=== PATIENT | female | born 1965 | race American Indian/Alaskan Native ===

== ENCOUNTER 2016-10-04 18:22 | Emergency (ER) | payer BC ==
[2016-10-04 21:10] LABS: Hemoglobin 13.1 gm/dl (10.1-14.3); Mean Corpuscular HGB Conc 34 % (30-34); Mean Corpuscular Hemoglobin 34 pg (28-32); Mean Corpuscular Volume 102 fl (79-97); Red Blood Count 3.83 M/mm3 (3.65-5.03); Red Cell Distribution Width 12.9 % (13.2-15.2); White Blood Count 7.7 K/mm3 (4.5-11.0)
[2016-10-04 21:11] LABS: Platelet Count 190 K/mm3 (140-440)
[2016-10-04 21:12] LABS: Basophils % (Auto) 0.1 % (0.0-1.8); Eosinophils % (Auto) 0.1 % (0.0-4.3)
[2016-10-04 21:21] LABS: Anion Gap 19 mmol/L; Blood Urea Nitrogen 10 mg/dL (7-17); Calcium 9.3 mg/dL (8.4-10.2); Carbon Dioxide 22 mmol/L (22-30); Chloride 100.9 mmol/L (98-107); Creatine Kinase 159 units/L (30-135); Glucose 106 mg/dL (65-100); Sodium 138 mmol/L (137-145)
--- NOTE | 2016-10-04 21:31 | Cat Scan Report ---
FINAL REPORT EXAM: CT ABDOMEN PELVIS WO CON HISTORY: R flank pain TECHNIQUE: Serial axial images through the abdomen and pelvis with coronal and sagittal reconstruction. PRIORS: None. FINDINGS: No focal consolidations are seen in the lung bases. No pleural effusion is seen. The liver, gallbladder, pancreas, spleen and adrenal glands appear within normal limits. Kidneys appear normal. No renal calculi are identified. No stones are seen along the course of the ureters. No gross abnormality is seen in bladder. No free fluid. Appendix appears normal. No gross bowel abnormality is identified. Stomach appears patulous. No acute osseous abnormality is identified. IMPRESSION: 1. No renal calculi are identified. No stones are seen along the course of the ureters. There is not evidence of hydronephrosis or other obstructive uropathy. Possibility of pyelonephritis is not excluded. Correlation with laboratory values is necessary. 2. Normal-appearing appendix. 3. No free fluid or inflammatory changes are seen in the abdomen or pelvis. 4. Stomach appears patulous, but nondistended.
[2016-10-04 21:56] LABS: Bacteria,Urine 1+ /HPF (Negative); Bilirubin,Urine NEG (Negative); Blood,Urine NEG (Negative); Ketones,Urine 80 mg/dL (Negative); Leukocyte Esterase,Urine LG (Negative); Mucus,Urine 2+ /HPF; Nitrite,Urine NEG (Negative); Urobilinogen,Urine < 2.0 mg/dL (<2.0)
--- NOTE | 2016-10-04 22:07 | Emergency Department Report ---
ED Female HPI - General Chief complaint: Abdominal Pain Stated complaint: LEFT SIDE PAIN Time Seen by Provider: 10/04/16 21:28 Source: patient Mode of arrival: Ambulatory Limitations: No Limitations - History of Present Illness Initial comments: This is a 51-year-old female well-nourished with nontoxic or ill in appearance the patient is afebrile complaining of left-sided flank pain, dysuria, polyuria 1 day. Patient stated she had dysuria and polyuria for the past week and started to develop left flank pain that brought her to the ED. Patient denies any chest pain, shortness of breath, fever, chills, headache, shortness of breath, nausea, vomiting, abdominal pain, pelvic pain. Patient visited pain of the left flank region she has vomited times one today. Patient describes pain as aching/sharp with current level of 2/10. Patient denies any allergies. Denies sick contact. Denies Past medical history. MD Complaint: dysuria, other (left flank pain) -: Gradual, days(s) (1) Radiation: non-radiating Severity: mild Severity scale (0 -10): 2 Quality: stabbing, aching Consistency: constant Improves with: none Worsens with: none Are you Now?: No (menopause) Associated Symptoms: dysuria. denies: vaginal discharge, vaginal bleeding, abdominal pain, nausea/vomiting, fever/chills, headaches, loss of appetite, hematuria, rash, seizure, shortness of breath, syncope, weakness - Related Data Sexually active: No Previous Rx's Medication Instructions Recorded Last Taken Type Starch 51%(Nf) [Anusol] 1 each ME BID #10 supp.rect 03/16/14 Unknown Rx Ciprofloxacin HCl [Ciprofloxacin 500 mg PO Q12HR 7 Days 10/04/16 Unknown Rx TAB] Allergies Allergy/AdvReac Type Severity Reaction Status Date / Time No Known Allergies Allergy Unverified 03/16/14 10:19 ED Review of Systems ROS: Stated complaint: LEFT SIDE PAIN Other details as noted in HPI Constitutional: denies: chills, fever Eyes: denies: eye pain, eye discharge, vision change ENT: denies: ear pain, throat pain Respiratory: denies: cough, shortness of breath, SOB with exertion, SOB at rest , stridor, wheezing Cardiovascular: denies: chest pain, palpitations Endocrine: no symptoms reported Gastrointestinal: denies: abdominal pain, nausea, diarrhea Genitourinary: denies: urgency, dysuria, discharge Musculoskeletal: denies: back pain, joint swelling, arthralgia Skin: denies: rash, lesions Neurological: denies: headache, weakness, paresthesias Psychiatric: denies: anxiety, depression Hematological/Lymphatic: denies: easy bleeding, easy bruising ED Past Medical Hx - Past Medical History Hx Asthma: Yes ("as child") - Surgical History Past Surgical History?: No - Social History Smoking Status: Never Smoker Substance Use Type: None - Medications Home Medications: Home Medications Medication Instructions Recorded Confirmed Last Taken Type Starch 51%(Nf) [Anusol] 1 each ME BID #10 supp.rect 03/16/14 Unknown Rx Ciprofloxacin HCl [Ciprofloxacin 500 mg PO Q12HR 7 Days 10/04/16 Unknown Rx TAB] ED Physical Exam - General Limitations: No Limitations General appearance: alert, in no apparent distress - Head Head exam: Present: atraumatic, normocephalic, normal inspection - Eye Eye exam: Present: normal appearance, PERRL, EOMI. Absent: scleral icterus, conjunctival injection, nystagmus, periorbital swelling, periorbital tenderness Pupils: Present: normal accommodation - ENT ENT exam: Present: normal exam, normal orophraynx, mucous membranes moist, TM's normal bilaterally, normal external ear exam - Neck Neck exam: Present: normal inspection, full ROM. Absent: tenderness, meningismus, lymphadenopathy, thyromegaly - Respiratory Respiratory exam: Present: normal lung sounds bilaterally. Absent: respiratory distress, wheezes, rales, rhonchi, stridor, chest wall tenderness, accessory muscle use, decreased breath sounds, prolonged expiratory - Cardiovascular Cardiovascular Exam: Present: regular rate, normal rhythm, normal heart sounds. Absent: bradycardia, tachycardia, irregular rhythm, systolic murmur, diastolic murmur, rubs, gallop - GI/Abdominal GI/Abdominal exam: Present: soft, normal bowel sounds. Absent: distended, tenderness, guarding, rebound, rigid, diminished bowel sounds - Extremities Exam Extremities exam: Present: normal inspection, full ROM, normal capillary refill. Absent: tenderness, pedal edema, joint swelling, calf tenderness - Back Exam Back exam: Present: normal inspection, full ROM. Absent: tenderness, CVA tenderness (R), CVA tenderness (L), muscle spasm, paraspinal tenderness, vertebral tenderness, rash noted - Neurological Exam Neurological exam: Present: alert, oriented X3, CN II-XII intact, normal gait, reflexes normal - Psychiatric Psychiatric exam: Present: normal affect, normal mood - Skin Skin exam: Present: warm, dry, intact, normal color. Absent: rash ED Course Vital Signs 10/04/16 10/04/16 20:17 20:18 Temperature 98.7 F 98.7 F Pulse Rate 71 71 Respiratory 18 18 Rate Blood Pressure 175/96 Blood Pressure 175/96 [Right] O2 Sat by Pulse 100 100 Oximetry - Reevaluation(s) Reevaluation #1: 10/04/16 22:12 Patient is able to speak in full sentences with no signs of distress. ED Medical Decision Making - Lab Data Result diagrams: 10/04/16 20:49 10/04/16 20:49 - Medical Decision Making Ed course: 51-year-old female presents with UTI Patient was examined by myself. Negative CVA tenderness. Digital patient complaining of left-sided flank pain with dysuria and polyuria and elevated white blood cell in urine patient will be treated for UTI/pyelonephritis with ciprofloxacin x7 days. Patient received a CT scan without contrast of abdomen/ pelvis. Dictated by Dr. Gillis . Impression; normal renal I or notify. No stones are seen along the course of the ureters. Normal-appearing appendix. No free fluid or thyroid changes in the abdomen or pelvis. Patient received results of the CT findings and laboratory findings. Patient rates the plan of care and discharge instructions. at time time of discharge, the patient does not seem toxic or ill in appearance. No acute signs of distress noted. Patient agrees to discharge treatment plan of care. No further questions noted by the patient. Critical care attestation.: If time is entered above; I have spent that time in minutes in the direct care of this critically ill patient, excluding procedure time. ED Disposition Clinical Impression: Polyneuritis UTI (urinary tract infection) Qualifiers: Urinary tract infection type: site unspecified Hematuria presence: without hematuria Qualified Code(s): N39.0 - Urinary tract infection, site not specified Disposition: - TO HOME OR SELFCARE Is pt being admited?: No Does the pt Need Aspirin: No Condition: Stable Instructions: Urinary Tract Infection in Women (ED), Acute Pyelonephritis (ED) , Flank Pain (ED), Ciprofloxacin (By mouth) Additional Instructions: Take full course of the antibiotics as prescribed. Follow-up with her primary care doctor in 3-5 days or if symptoms worsen and continue to to emergency room as was possible. Prescriptions: Ciprofloxacin HCl [Ciprofloxacin TAB] 500 mg PO Q12HR 7 Days Referrals: PRIMARY CAREMD [Primary Care Provider] - 3-5 Days MALCOLM ROBERTO JR, MD [Staff Physician] - 3-5 Days [facility] [Outside] - 3-5 Days [facility] [Outside] - 3-5 Days Forms: Work/School Release Form(ED)
[2016-10-04 22:59] VITALS: BP 178/92
== END 2016-10-04 23:04 | disposition home or self-care (01) ==
LOC: ED 18:22
DX: N39.0 Urinary tract infection, site not specified (principal); G62.9 Polyneuropathy, unspecified; J45.909 Unspecified asthma, uncomplicated
CPT/HCPCS: 36415; 74176; 80048; 81001; 82550; 85025

== ENCOUNTER 2020-11-17 09:23 | Emergency (ER) | payer BC ==
[2020-11-17 09:57] VITALS: BP 155/97
--- NOTE | 2020-11-17 18:20 | Emergency Department Report ---
ED Lower Extremity HPI - General Chief Complaint: Extremity Injury, Lower Stated Complaint: L LEG PAIN Time Seen by Provider: 11/17/20 17:53 Source: patient Mode of arrival: Ambulatory Limitations: No Limitations - History of Present Illness Initial Comments: 55-year-old -[place] female that is noncompliant on her chronic disease of asthma and hypertension anemia presents to the emergency room for complaint of left hip pain that started yesterday. Patient denies any trauma. 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 Patient admits to hypertension iron deficiency and asthma she currently does not take any meds and admits that she is noncompliant. She is currently does not have a primary care provider. She has not taken anything for her left hip pain. She states walking makes it worse and resting makes it better. Patient reports that she is menopausal. MD Complaint: other (Left hip pain ) Onset/Timin -: days(s) Injury: Hip: Left Type of Injury: unknown Severity scale (0 -10): 7 Improves With: rest Worsens With: weight bearing, movement Associated Symptoms: able to partially bear weight. denies: swelling, numbness, tingling - Related Data Previous Rx's Medication Instructions Recorded Last Taken Type Starch 51%(Nf) [Anusol] 1 each GA BID #10 supp.rect 03/16/14 Unknown Rx Ciprofloxacin HCl [Ciprofloxacin 500 mg PO Q12HR 7 Days tab 10/04/16 Unknown Rx TAB] Ibuprofen [Motrin 600 MG tab] 600 mg PO Q8H PRN #30 tablet 11/17/20 Unknown Rx predniSONE [Deltasone] 20 mg PO QDAY #3 tab 11/17/20 Unknown Rx Allergies Allergy/AdvReac Type Severity Reaction Status Date / Time No Known Allergies Allergy Verified 11/17/20 09:53 ED Review of Systems ROS: Stated complaint: L LEG PAIN Other details as noted in HPI Comment: All other systems reviewed and negative ED Past Medical Hx - Past Medical History Hx Hypertension: Yes Hx Asthma: Yes ("as child") - Surgical History Past Surgical History?: No - Social History Smoking Status: Never Smoker Substance Use Type: None - Medications Home Medications: Home Medications Medication Instructions Recorded Confirmed Last Taken Type Starch 51%(Nf) [Anusol] 1 each GA BID #10 supp.rect 03/16/14 Unknown Rx Ciprofloxacin HCl [Ciprofloxacin 500 mg PO Q12HR 7 Days tab 10/04/16 Unknown Rx TAB] Ibuprofen [Motrin 600 MG tab] 600 mg PO Q8H PRN #30 tablet 11/17/20 Unknown Rx predniSONE [Deltasone] 20 mg PO QDAY #3 tab 11/17/20 Unknown Rx ED Physical Exam - General Limitations: No Limitations General appearance: alert - Head Head exam: Present: atraumatic, normocephalic - Eye Eye exam: Present: normal appearance - ENT ENT exam: Present: mucous membranes moist - Neck Neck exam: Present: normal inspection - Respiratory Respiratory exam: Present: normal lung sounds bilaterally. Absent: accessory muscle use - Cardiovascular Cardiovascular Exam: Present: regular rate - GI/Abdominal GI/Abdominal exam: Present: soft, normal bowel sounds - Expanded Lower Extremity Exam Left Hip exam: Present: full ROM, tenderness. Absent: swelling, abrasion, ecchymosis , deformity, crepidus, erythema Upper Leg exam: Present: normal inspection, full ROM. Absent: tenderness, swelling Knee exam: Present: normal inspection, full ROM Lower Leg exam: Present: normal inspection, full ROM Ankle exam: Present: normal inspection, full ROM Foot/Toe exam: Present: normal inspection, full ROM Neuro vascular tendon exam: Present: no vascular compromise Gait: Positive: observed and limited by pain - Back Exam Back exam: Present: normal inspection - Neurological Exam Neurological exam: Present: alert, oriented X3 - Psychiatric Psychiatric exam: Present: normal affect, normal mood - Skin Skin exam: Present: warm, dry, intact, normal color. Absent: rash ED Course Vital Signs 11/17/20 09:56 Temperature 99.1 F Pulse Rate 90 Respiratory 20 Rate Blood Pressure 155/97 O2 Sat by Pulse 99 Oximetry ED Lower Extremity MDM - Radiology Data Radiology results: report reviewed [facility] [address] [place] [address] XRay Report Signed Patient: GABE WOMACK MR#: [id number] : 1965 Acct:[id number] Age/Sex: 55 / F ADM Date: 11/17/20 Loc: ED Attending Dr: Ordering Physician: CRAIG PELAEZ Date of Service: 11/17/20 Procedure(s): XR hip 2-3V LT Accession Number(s): [id number] cc: CRAIG PELAEZ Fluoro Time In Minutes: LEFT HIP 2 VIEWS INDICATION / CLINICAL INFORMATION: Left hip pain and tenderness COMPARISON: None available. FINDINGS: BONES / JOINT(S): No acute fracture or subluxation. There is mild narrowing of the hip joint spaces. SOFT TISSUES: No significant abnormality. ADDITIONAL FINDINGS: None. Signer Name: Urban Rabago MD Signed: 11/17/2020 6:51 PM Workstation Name: [id number] Transcribed By: PRASANNA Dictated By: Urban Rabago MD Electronically Authenticated By: Urban Rabago MD Signed Date/Time: 11/17/201850 DD/ 49 TD/TT: Print Cancel - Medical Decision Making 55-year-old -[place] female that is noncompliant on her chronic disease of asthma and hypertension anemia presents to the emergency room for complaint of left hip pain that started yesterday. Patient denies any trauma. She does admit that she is constantly walking and moving while she works for the [employer] system. Patient admits to hypertension iron deficiency and asthma she currently does not take any meds and admits that she is noncompliant. She is currently does not have a primary care provider. She has not taken anything for her left hip pain. She states walking makes it worse and resting makes it better. Patient reports that she is menopausal. X-ray of left hip has been ordered. Since patient is noncompliant with a nontraumatic left hip due to age I will order a left hip x-ray. Would like to rule out necrosis of the femoral head or any bone lesion. If x-ray is negative we will place patient on NSAID and prednisone for 3 days as she may have a bursitis. Critical care attestation.: If time is entered above; I have spent that time in minutes in the direct care of this critically ill patient, excluding procedure time. ED Disposition Clinical Impression: Acute pain of left hip Hip bursitis, left Qualifiers: Hip bursitis location: trochanteric bursitis Qualified Code(s): M70.62 - Trochanteric bursitis, left hip Disposition: HOME / SELF CARE / HOMELESS Is pt being admited?: No Does the pt Need Aspirin: No Condition: Stable Instructions: Joint Pain, [id number] Additional Instructions: X-ray of left hip is negative for any acute findings. Please take ibuprofen and a 3-day course of prednisone as you most likely have a bursitis. Follow-up with a primary care provider. Prescriptions: predniSONE [Deltasone] 20 mg PO QDAY #3 tab Ibuprofen [Motrin 600 MG tab] 600 mg PO Q8H PRN #30 tablet PRN Reason: Pain Referrals: PRIMARY CAREMD [Primary Care Provider] - 3-5 Days MELODY PENA MD [Staff Physician] - 3-5 Days Forms: Work/School Release Form(ED)
--- NOTE | 2020-11-17 18:55 | XRay Report ---
LEFT HIP 2 VIEWS INDICATION / CLINICAL INFORMATION: Left hip pain and tenderness COMPARISON: None available. FINDINGS: BONES / JOINT(S): No acute fracture or subluxation. There is mild narrowing of the hip joint spaces. SOFT TISSUES: No significant abnormality. ADDITIONAL FINDINGS: None. Signer Name: Urban Rabago MD Signed: 11/17/2020 6:51 PM Workstation Name: [id number]
== END 2020-11-17 22:34 | disposition home or self-care (01) ==
LOC: ED 09:23
DX: M70.62 Trochanteric bursitis, left hip (principal); M25.552 Pain in left hip; I10 Essential (primary) hypertension; J45.909 Unspecified asthma, uncomplicated
CPT/HCPCS: 99282; 99283